=== PATIENT | female | born 2000 | race Caucasian/White ===

== ENCOUNTER 2023-07-03 13:35 | Outpatient (CLI) | payer OTHER, SELFPAY ==
[2023-07-03 19:07] LABS: Basophils Absolute Auto 0.1 K/mm3 (0.0-0.1); Eosinophils Absolute Auto 0.1 K/mm3 (0-0.3); Eosinophils Percent Auto 0.8 % (0-4.4); Hematocrit 43.8 % (37.0-47.0); Hemoglobin 13.9 g/dL (12.0-15.0); Immature Granulocyte Absolute 0.01 K/mm3 (0.00-0.031); Immature Granulocyte Percent A 0.2 % (0-0.5); Lymphocytes Absolute Auto 1.64 K/mm3 (0.9-3.2); Lymphocytes Percent Auto 26.9 % (18.3-44.2); Mean Corpuscular HGB Conc 31.7 g/dl (32-36); Mean Corpuscular Hemoglobin 29.2 pg (26-34); Mean Platelet Volume 11.6 fl (7.4-10.4); Monocytes Absolute Auto 0.4 K/mm3 (0.1-0.6); Monocytes Percent Auto 6.1 % (2.6-8.5); Platelet Count Result 253 k/mm3 (150-375); Red Blood Count 4.76 M/mm3 (4.2-5.4); Red Cell Distribution Width 12.1 % (11.5-14.5); White Blood Count 6.1 K/mm3 (4.5-10.0)
[2023-07-03 19:28] LABS: Rheumatoid Factor < 12.0 IU/ML (<12)
[2023-07-03 19:30] LABS: Appearance Urine Clear (Clear); Bilirubin Urine Negative (Negative); Blood Urine Negative (Negative); Color Urine Yellow (Yellow); Glucose Urine UA Negative (Negative); Ketones Urine Negative (Negative); Leukocyte Esterase Ur Negative LEU/UL (Negative); Nitrate Urine Negative (Negative); Protein Urine Negative (Negative); Urobilinogen Urine 0.2 mg/dL (<2.0)
[2023-07-03 19:42] LABS: Add Urine Microscopic? NO
[2023-07-03 19:49] LABS: Erythrocyte Sedimentation Rate 7 mm/hr (0-20)
[2023-07-03 20:09] LABS: Alanine Aminotransferase 16 U/L (6-35); Albumin Level 4.4 g/dL (3.5-5.1); Alkaline Phosphatase 64 U/L (38-126); Anion Gap 8 mmol/L (8-16); Aspartate Amino Transferase 39 U/L (14-36); Bilirubin,Total 0.6 mg/dL (0.2-1.3); Blood Urea Nitrogen 12 mg/dL (7-17); Calcium 9.3 mg/dL (8.4-10.2); Carbon Dioxide 27 mmol/L (22-30); Chloride 105 mmol/L (98-107); Estimated Glomerular Filt Rate > 60; Glucose 101 mg/dL (65-110); Potassium 3.8 mmol/L (3.4-5.0); Sodium 140 mmol/L (137-145)
[2023-07-03 20:31] LABS: Thyroid Stimulating Hormone 0.711 uIU/mL (0.465-4.680)
[2023-07-05 21:07] LABS: Anti Cyclic Citrullinated Pept <16 Units (<20)
[2023-07-06 17:48] LABS: Vitamin D 1,25 (OH)2 Total 49 pg/mL (18-72); Vitamin D2 1,25 (OH)2 <8 pg/mL; Vitamin D3 1,25 (OH)2 49 pg/mL
[2023-07-07 03:01] LABS: Anti Nuclear Antibody Pattern Nuclear, Speckled
== END 2023-07-03 13:36 | disposition home or self-care (01) ==
LOC: ANHGOSHLAB 13:36
PROVIDERS: PCP Pediatrics; Visit Provider Nurse Practitioner Family
DX: Z00.00 Encounter for general adult medical examination without abnormal findings (principal); M79.643 Pain in unspecified hand; E55.9 Vitamin D deficiency, unspecified; I10 Essential (primary) hypertension
CPT/HCPCS: 36415; 80053; 81003; 82652; 84443; 85025; 85652; 86038; 86039; 86200; 86430

== ENCOUNTER 2024-02-21 10:31 | Outpatient (CLI) | payer OTHER, SELFPAY ==
--- NOTE | ~2024-02-21 | US_ITS ---
US breast RT limited 02/21/2024 11:22 Indication: Palpable right breast lumps Procedure: High-resolution ultrasound limited of the right breast Comparison: No prior studies for comparison. Findings: At 12:00, 6 cm from the nipple there is an oval parallel oriented hypoechoic 6 mm mass with out internal vascularity or posterior features. In the area of palpable concern at 12:30, 7 cm from t he nipple there is an old. Transcribed parallel oriented hypoechoic 1.7 cm mass without internal vasc ularity or posterior features. At 12:00, 2 cm from the nipple an area of palpable concern there is an oval hypoechoic 1 cm mass with parallel orientation, no internal vascularity and no posterior featur es. Impression: 1: Multiple right breast masses are identified in the areas of palpable concern, all with benign sono graphic characteristics, likely benign. BI-RADS CATEGORY 3-PROBABLY BENIGN FINDING RECOMMENDATION: 6 month follow-up Limited right breast ultrasound recommended. Reviewed, dictated and finalized at location B. Impression: 1: Multiple right breast masses are identified in the areas of palpable concern , all with benign sonographic characteristics, likely benign. BI-RADS CATEGORY 3-PROBABLY BENIGN FINDING RECOMMENDATION: 6 month follow-up Limited right breast ultrasound recommended.
== END 2024-02-21 10:32 | disposition home or self-care (01) ==
LOC: ANHIMG 10:33
PROVIDERS: PCP Nurse Practitioner Family; Visit Provider Nurse Practitioner Family
DX: N63.10 Unspecified lump in the right breast, unspecified quadrant (principal); R92.8 Other abnormal and inconclusive findings on diagnostic imaging of breast
CPT/HCPCS: 76642

== ENCOUNTER 2025-04-09 13:22 | Outpatient (CLI) | payer OTHER, SELFPAY ==
--- NOTE | ~2025-04-09 | US_ITS ---
US breast RT limited 04/09/2025 13:46 Indication: Follow-up right breast masses Procedure: High-resolution Limited ultrasound of the right breast Comparison: Ultrasound dated 02/21/2024 Findings: At 12:00, 2 cm from the nipple there is an oval parallel oriented hypoechoic mass measuring 10 x 8 x 3 mm compared with 10 x 7 x 3 mm on prior examination. This mass is stable allowing for dif ferences of technique. At 12:00, 6 cm from the nipple there is an oval hypoechoic mass with parallel orientation, circumscribed margins, no internal vascularity or posterior features measuring 7 x 5 x 3 mm compared with 6 x 5 x 3 mm on prior study, stable. At 12:30, 7 cm from the nipple there is an ova l hypoechoic mass measuring 1.7 x 1.4 x 0.8 cm compared with 1.7 x 1.5 x 0.8 cm on prior study withou t significant change. Impression: 1: Stable likely benign right breast masses allowing for differences of technique. BI-RADS CATEGORY 3-PROBABLY BENIGN FINDING RECOMMENDATION: 12 month follow-up ultrasound recommended. Reviewed, dictated and finalized at location B. Impression: 1: Stable likely benign right breast masses allowing for differences of techniq ue. BI-RADS CATEGORY 3-PROBABLY BENIGN FINDING RECOMMENDATION: 12 month follow-up ultrasound recommended.
--- OUTSIDE RECORDS SUMMARY | 2025-04-09 13:39 | XMS_ITS | Clinical Summary ---
Author Organization [facility] Address [address] [place] [address] Care Team Providers Care Lead Ios Developer Name Role Phone Unavailable Primary Care Provider Unavailabl e Social History Tobacco Use Types Packs/Day Years Used Date Smoking Tobacco: Never Assessed Comments Unknown Sex and Gender Information Value Date Recorded Sex Assigned at Not on file Legal Sex Female 10:08 AM BLOCK SAWYER Gender Identity Not on file Sexual Orientation Not on file Plan of Treatment Health Maintenance Due Date Last Done Comments Hepatitis C Virus (HCV) Screening 2000 SARS-COV-2 Immunization ( season) 2024 Influenza Immunization (#1) 05/12/202507/12, 07/21/2017, 07/12/2015, Additional history exists Respiratory Syncytial Virus (RSV) Immunization (Adult) (1 - 1-dose 75+ series) 2075 Hepatitis B Immunization Completed 001, 2000, 2000 Pneumococcal Immunization Combined Aged Out 06/18/2001, 2000, 2000, Additional history exists No longer eligible based on patient's age to complete this topic DTaP/Tdap/Td Immunization Discontinued 2010, 06/17/2005, 10/16/2001, Additional history exists TdaP Immunization Completed 07/25/2011 Human Papillomavirus (HPV) Immunization Completed 03/27/2015, 08/29/2014, 08/23/2013 Meningococcal Immunization (ACWY) Completed 11/04/2016, 07/25/2011 Meningococcal B Immunization Discontinued 03/19/2019, 02/13/2019 Rotavirus Immunization Aged Out No lo nger eligible based on patient's age to complete this topic Insurance [employer] on file
--- OUTSIDE RECORDS SUMMARY | 2025-04-09 13:39 | XMS_ITS | Clinical Summary ---
Author Organization [facility] Address [facility] [place] [address] Care Team Providers Care Fire Chief Deputy Name Role Phone Eliz Nolasco MD Primary Care Provider Allergies No known active allergies Medications No known medications Social History Tobacco Use Types Packs/Day Years Used Date Smoking Tobacco: Never Smokeless Tobacco: Never Tobacco Cessation:Counseling Given: Not Answered Alcohol Use Standard Drinks/Week Comments Never 0 (1 standard drink = 0.6 oz pur e alcohol) Comments Unknown Sex and Gender Information Value Date Recorded Sex Assigned at Not on file Legal Sex Female 4:30 PM REAL ESTATE AGENCY PRINCIPAL Gender Identity Not on file Sexual Orientation Not on file Last Filed Vital Signs Vital Sign Reading Time Taken Comments Blood Pressure 118/83 10/27/2023 4:50 PM REAL ESTATE AGENCY PRINCIPAL Pulse 76 10/27/2023 4:50 PM REAL ESTATE AGENCY PRINCIPAL Temperature 37.2 C (98.9 F) 10/27/2023 4:50 PM REAL ESTATE AGENCY PRINCIPAL Respiratory Rate 18 10/27/2023 4:50 PM REAL ESTATE AGENCY PRINCIPAL Oxygen Saturation 99% 10/27/2023 4:50 PM REAL ESTATE AGENCY PRINCIPAL Inhaled Oxygen Concentration - - Weight 54.4 kg (120 lb) 10/27/2023 4:50 PM REAL ESTATE AGENCY PRINCIPAL Height 154.9 cm (5' 1) 10/27/2023 4:50 PM REAL ESTATE AGENCY PRINCIPAL Body Mass Index 22.67 10/27/2023 4:50 PM REAL ESTATE AGENCY PRINCIPAL Plan of Treatment Health Maintenance Due Date Last Done Comments Cervical Cancer Screening Pap Smear (Age 21 to 29) Every 3 Years 2000 Cervical Cancer Screening 2000 Annual Physical 2003 Hepatitis C 2018 COVID-19 Vaccine ( season) 2024 06/22/2023, 09/12/2022, 01/05/2021, Additional history exists DTaP, Tdap and Td Vaccines (8 - Td or Tdap) 06/22/2033 06/22/2023, 07/25/2011, 06/17/2005, Additional history exists Hepatitis B Vaccines Completed 06/18/2001, 2000, 2000 Pneumococcal Vaccine: Pediatrics (0 to 5 Years) and At-Risk Patients (6 to 49 Years) Aged Out 06/18/2001, 2000, 2000, Additional history exists No longer eligible based on patient's age to complete this topic HPV Vaccines Completed 03/27/2015, 08/11, 08/23/2013 Meningococcal Vaccine Completed 11/04/2016, 011 Meningococcal B Vaccine Completed 03/19/2019, 02/13 RSV Immunizations Under 20 Months Aged Out No longer eligible based on patient's age to complete this topic Insurance [employer] Member Subscriber Plan / Payer (Ef fective 2023-Present) Name:Laura Veloz Relation to Subscriber:Self Name:Laura Veloz Payer ID:Not on file Group ID:Not on file Type:Not on file Address: [address] [place] [address] Care Teams Fire Chief Deputy Relationship Specialty Start Date End Date Eliz Nolasco MD [address] [place] [address] PCP - General FAMILY PRACTICE 10/27/23
--- OUTSIDE RECORDS SUMMARY | 2025-04-09 13:39 | XMS_ITS | Clinical Summary ---
Author Organization [facility] Address [address] [place] [address] Care Team Providers Care Windows Server Architect Name Role Phone Clinton Hernandez MD Primary Care Provider Source Comments [facility],non-owned Affiliates and Associated Physician Practices is amultiple site organization consisting of ambulatory clinics and hospital sitesin [place], [place], [place] and [place]. This disclosure is being madepursuant to the Care Everywhere program and may not contain all information available regarding this patient. Last updated 18.[employer] Allergies No known active allergies Medications * Be aware that medications may not be up to date on this document. Alwaysverify current medications with the patient. No known medications Immunizations Immunization Administration Dates Next Due HEP A PEDS 2 DOSE 08/28/2018 Social History Tobacco Use Types Packs/Day Years Used Date Smoking Tobacco: Never Smokeless Tobacco: Never Comments Unknown Sex and Gender Information Value Date Recorded Sex Assigned at Not on file Legal Sex Female 7:52 AM CDT Gender Identity Not on file Sexual Orientation Not on file Last Filed Vital Signs Vital Sign Reading Time Taken Comments Blood Pressure 88/52 12/09/2017 2:38 PM CDT Pulse 72 12/09/2017 2:38 PM CDT Temperature 36.9 C (98.5 F) 12/09/2017 2:38 PM CDT Respiratory Rate 20 12/09/2017 2:38 PM CDT Oxygen Saturation 99% 12/09/2017 2:38 PM CDT Inhaled Oxygen Concentration - - Weight 47.6 kg (105 lb) 12/09/2017 2:38 PM CDT Height 154.9 cm (5' 1) 12/09/2017 2:38 PM CDT Body Mass Index 19.84 12/09/2017 2:38 PM CDT Plan of Treatment Health Maintenance Due Date Last Done Comments HIV SCREENING 2015 HPV VACCINE (1 - 3-dose series) 2015 CHLAMYDIA/GONORRHEA SCREENING 2016 HEPATITIS C SCREENING 06/06/2018 HEPATITIS A VACCINE (2 of 2 - Risk 2-dose series) 02/26/2019 08/28/2018 DTAP/TDAP/TD VACCINES (1 - Tdap) 2019 HEPATITIS B VACCINE (1 of 3 - 19+ 3-dose series) 2019 COVID-19 VACCINE (1 - 2023-2 5 season) 2024 DEPRESSION SCREENING 09/11/2024 INFLUENZA VACCINE (#1) 2025 ZOSTER VACCINE (1 of 2) 2050 HIB VACCINE Aged Out No longer eligi ble based on patient's age to complete this topic MENINGOCOCCAL (Group B) VACC INE SHARED DECISION-MAKING Aged Out No longer eligibl e based on patient's age to complete this topic MENINGOCOCCAL GROUPS A/C/Y/W VACCINE Aged Out No longer eligible b ased on patient's age to complete this topic PNEUMOCOCCAL VACCINE Aged Out No long er eligible based on patient's age to complete this topic Insurance [facility] Care Teams Windows Server Architect Relationship Specialty Start Date End Date Clinton Hernandez MD [address] [place] [address] PCP - General Pediatrics 12/09/17
== END 2025-04-09 13:23 | disposition home or self-care (01) ==
PROVIDERS: PCP Family Medicine; Visit Provider Nurse Practitioner Family
DX: N63.11 Unspecified lump in the right breast, upper outer quadrant (principal)
CPT/HCPCS: 76642